=== PATIENT | female | born 1990 | race Caucasian/White ===

== ENCOUNTER 2024-01-27 09:57 | Inpatient (IN) | payer OTHER, SELFPAY ==
[2024-01-26 11:30] LABS: Hemoglobin 12.3 g/dL (12.0-15.5); Platelet Count 285 10x3/uL (150-450)
[2024-01-26 12:09] LABS: Syphilis Antibody Nonreactive (Nonreactive); Syphilis Antibody Index 0.05 S/CO (<1.00 Non-Reactive)
[2024-01-26 12:10] LABS: HBsAg Index 0.25 S/CO (0-0.99); HIV (1/2) Antibody/Antigen Non-Reactive (NonReactive); HIV 1/2 INDEX 0.09 S/CO (<1.00); Hep B Surf Ag Non-Reactive S/CO (NonReactive)
[2024-01-27] MEDS ORDERED: hydrALAZINE 20 MG/ML VIAL SLOW IVP PRN ×2 (10:51→18:25)
[2024-01-27] MEDS ORDERED: Bicitra 30 ML UDCUP PO PRN (10:51)
[2024-01-27] MEDS ORDERED: Promethazine HCl 25 MG/ML VIAL IM PRN ×2 (10:51→17:14)
[2024-01-27] MEDS ORDERED: Famotidine/PF 20 mg/2ml Vial SLOW IVP PRN (10:51)
[2024-01-27] MEDS ORDERED: Ondansetron PF 4 MG/2 ML Vial IVP PRN ×4 (10:51→18:25)
[2024-01-27] MEDS ORDERED: Tranexamic Acid 1,000 MG/10 ML VIAL IVP PRN ×2 (10:52→18:25)
[2024-01-27] MEDS ORDERED: Misoprostol 200 MCG TAB PR PRN ×2 (10:52→18:25)
[2024-01-27] MEDS ORDERED: Methylergonovine 0.2 MG/ML VIAL IM PRN ×2 (10:52→18:25)
[2024-01-27] MEDS ORDERED: Diphenoxylate HCl/Atropine Tablet PO PRN (10:52)
[2024-01-27] MEDS ORDERED: Carboprost 250 MCG/ML AMP IM PRN (10:52)
[2024-01-27] MEDS ORDERED: CEFAZOLIN 2 GM in Sodium Chloride 0.9% 100 ML IVPB SCH (11:00)
[2024-01-27] MEDS ORDERED: Oxytocin 30 units/NS 500 ML 500 ML IV SCH ×2 (11:00→18:25)
[2024-01-27 11:26] VITALS: BMI 42.0
[2024-01-27] MEDS: Lactated Ringer's 1,000 ML IV SCH (14:46)
[2024-01-27] MEDS: CEFAZOLIN 2 GM in Sodium Chloride 0.9% 100 ML IVPB SCH (14:46)
[2024-01-27] MEDS: Famotidine/PF 20 mg/2ml Vial SLOW IVP PRN (14:47)
[2024-01-27] MEDS ORDERED: Naloxone HCl 0.4 mg/ml Vial IV PRN (17:14)
[2024-01-27] MEDS ORDERED: Meperidine HCl/PF 25 MG (1 mL) VIAL SLOW IVP PRN (17:14)
[2024-01-27] MEDS ORDERED: fentaNYL 50 mcg/mL 1 mL Vial SLOW IVP PRN (17:14)
[2024-01-27] MEDS ORDERED: diphenhydrAMINE 50 MG/ML VIAL IVP PRN (17:14)
[2024-01-27] MEDS ORDERED: Naloxone HCl 0.4 mg/ml Vial IVP PRN ×2 (17:14)
[2024-01-27] MEDS ORDERED: Moisturizing Cream (Eucerin) 113 GM JAR TOP PRN (17:14)
[2024-01-27] MEDS ORDERED: Communication Order-Pharmacy FS SCH (17:15)
[2024-01-27] MEDS ORDERED: diphenhydrAMINE 25 MG CAP PO PRN (18:25)
[2024-01-27] MEDS ORDERED: Lanolin Ointment 7 GM TUBE TOP PRN (18:25)
[2024-01-27] MEDS: Ketorolac Tromethamine 30 MG (1 mL) VIAL IVP SCH (18:36)
[2024-01-28] MEDS: Docusate 100 MG CAP PO SCH
[2024-01-28] MEDS: Acetaminophen 500 MG TAB PO SCH
[2024-01-28] MEDS: Ferrous Sulfate 325 MG TAB PO SCH (00:01)
[2024-01-28] MEDS: Ketorolac Tromethamine 30 MG (1 mL) VIAL IVP PRN (00:39)
[2024-01-28 03:41] LABS: Hematocrit 28.8 % (34.9-44.5); Hemoglobin 10.1 g/dL (12.0-15.5); Mean Corpuscular HGB CONC 35.1 g/dL (32.0-36.0); Mean Corpuscular Hemoglobin 29.7 pg (27.0-33.0); Mean Corpuscular Volume 84.7 fl (81.6-98.3); Mean Platelet Volume 9.3 fl (7.4-10.4); Platelet Count 238 10x3/uL (150-450); RBC Distribution Width 13.2 % (11.5-14.5); White Blood Cell (WBC) Count 12.7 10x3/uL (3.5-10.5)
[2024-01-28] MEDS: Prenatal Vitamin 1 TAB PO SCH (08:40)
[2024-01-28] MEDS: Dexamethasone 4 mg/ml Vial ONE ×3 (08:47→08:54)
[2024-01-28] MEDS: ePHEDrine Sulfate 50 MG/10 ML VIAL ONE (08:48)
[2024-01-28] MEDS: Ketorolac Tromethamine 30 MG (1 mL) VIAL ONE (08:52)
[2024-01-28] MEDS: Glycopyrrolate 0.2 MG/ML 5 ML SYRINGE ONE (08:52)
[2024-01-28] MEDS: Oxytocin 10 UNITS/ML VIAL ONE ×3 (08:53→08:55)
[2024-01-28] MEDS: Ondansetron PF 4 MG/2 ML Vial ONE ×3 (08:53→08:55)
[2024-01-28] MEDS: Phenylephrine 40 MG/NS 250 ML 250 ML ONE (08:54)
[2024-01-28] MEDS: Morphine PF 10 MG/10 ML VIAL ONE ×3 (08:54)
[2024-01-28] MEDS: PHENYLEPHRINE-NS 100 MCG/ML 10 ML SYRINGE ONE ×2 (08:55→08:56)
[2024-01-28] MEDS: Lidocaine 1% PF 5 ML VIAL ONE (08:55)
[2024-01-28] MEDS: Boostrix 0.5 ML (Tdap) VIAL (>/=7 yrs of age) IM ONE (08:56)
[2024-01-28] MEDS: HYDROcodone/Acetaminophen 5/325 mg Tablet PO PRN ×3 (16:21→22:46)
[2024-01-28] MEDS ORDERED: HYDROcodone/Acetaminophen 5/325 mg Tablet PO PRN ×2 (18:08)
[2024-01-28] MEDS ORDERED: Acetaminophen 325 MG TAB PO SCH (18:15)
[2024-01-28] MEDS: Ibuprofen 800 MG TAB PO SCH (21:17)
[2024-01-28] MEDS: Acetaminophen 325 MG TAB PO SCH (21:18)
[2024-01-29] MEDS ORDERED: HYDROcodone/Acetaminophen 5/325 mg Tablet PO PRN ×2 (01:09→07:00)
[2024-01-29] MEDS: HYDROcodone/Acetaminophen 5/325 mg Tablet PO PRN (08:51)
[2024-01-29] MEDS ORDERED: Albuterol 2.5 MG (3 mL) NEB NEB PRN (11:14)
[2024-01-29] MEDS: Acetaminophen 325 MG TAB PO SCH ×2 (12:55→17:37)
[2024-01-29] MEDS: Ferrous Sulfate 300 MG (5 mL) UDCUP PO SCH (14:13)
[2024-01-29] MEDS: HYDROcodone/Acetaminophen 5/325 mg Tablet PO SCH (18:00)
[2024-01-29] MEDS ORDERED: Ferrous Sulfate 325 MG TAB PO SCH (21:00)
[2024-01-29] MEDS: Ibuprofen 600 MG TAB PO SCH (21:43)
[2024-01-30] MEDS: HYDROcodone/Acetaminophen 5/325 mg Tablet PO SCH (00:02)
[2024-01-30] MEDS: Simethicone Chewable 80 MG TAB PO PRN (10:20)
[2024-01-30] MEDS: Ferrous Sulfate 300 MG (5 mL) UDCUP PO SCH (10:21)
[2024-01-30 10:45] VITALS: TEMP 97.5
[2024-01-30 15:18] VITALS: BP 132/77
== END 2024-01-30 15:45 | disposition home or self-care (01) | DRG 784 ==
LOC: CSHLD 09:57 → CSHPED 20:50
PROVIDERS: ADMIT Obstetrics & Gynecology; ATTEND Obstetrics & Gynecology
PROC: 10D00Z1 Extraction of Products of Conception, Low, Open Approach (ICD-10-PCS; principal; 2024-01-27)
PROC: 0UB70ZZ Excision of Bilateral Fallopian Tubes, Open Approach (ICD-10-PCS; 2024-01-27)
DX: O34.211 Maternal care for low transverse scar from previous cesarean delivery (principal); D62 Acute posthemorrhagic anemia; O99.824 Streptococcus B carrier state complicating childbirth; O99.214 Obesity complicating childbirth; Z3A.39 39 weeks gestation of pregnancy; Z37.0 Single live birth; Z91.010 Allergy to peanuts; O13.4 Gestational [pregnancy-induced] hypertension without significant proteinuria, complicating childbirth; O99.02 Anemia complicating childbirth; O26.893 Other specified pregnancy related conditions, third trimester; E88.819 Insulin resistance, unspecified
CPT/HCPCS: 36415; 51702; 74181; 85014; 85018; 85027; 85049; 86780; 86850; 86900; 86901; 87340; 87389; 88302; J1100; J1885; J2274; J2405; J2590; J3490; J7120; S0028